=== PATIENT | male | born 1965 | race African-American/Black ===

== ENCOUNTER 2017-02-11 11:48 | Emergency (ER) | payer MEDICAID, OTHER ==
[~2017-02-11] VITALS: Ht 175.3 cm; Wt 73.0 kg
[~2017-02-11 11:48] MED LIST: ALBU05 IH; FLUO20CA33 PO; HYDR25TA PO; NAPR-1176 PO; PHEN100C4 PO; ZIPR20CA2 PO
[2017-02-11 11:55] VITALS: BP 177/121
== END 2017-02-11 15:47 | disposition left against medical advice (07) ==
LOC: ER 15:39
DX: Z76.0 Encounter for issue of repeat prescription (principal); Z53.21 Procedure and treatment not carried out due to patient leaving prior to being seen by health care provider

== ENCOUNTER 2017-12-13 03:37 | Emergency (ER) | payer OTHER ==
[~2017-12-13] VITALS: Ht 175.3 cm; Wt 78.0 kg
[2017-12-13 05:02] LABS: CHLORIDE 104 mEq/L (98-107)
[2017-12-13 05:07] LABS: ETHANOL BLOOD < 10 mg/dL
[2017-12-13 05:12] LABS: BASOPHILS % 1.1 % (0.0-2.0); HEMATOCRIT. 35.1 % (42.0-52.0); HEMOGLOBIN. 11.8 g/dL (14.0-18.0); LYMPHOCYTES % 32.4 % (20.0-50.0); MEAN CORPUSCULAR HEMOGLOBIN 28.8 pg (28.0-32.0); MEAN CORPUSCULAR VOLUME 85.8 fL (80.0-94.0); MEAN PLATELET VOLUME 7.6 fl (7.4-10.4); MONOCYTES % 11.1 % (2.0-8.0); NEUTROPHILS % 51.4 % (40.0-76.0); PLATELET 356 x1000/uL (130-400); RED BLOOD CELL COUNT 4.09 mill/uL (4.7-6.1); RED CELL DISTRIBUTION WIDTH 14.3 % (11.6-14.6)
[2017-12-13 07:08] LABS: CLARITY URINE CLEAR (CLEAR); COLOR URINE YELLOW (YELLOW); KETONES URINE NEGATIVE (NEGATIVE); LEUKOCYTE ESTERASE URINE NEGATIVE (NEGATIVE); NITRITE URINE NEGATIVE (NEGATIVE); OCCULT BLOOD URINE NEGATIVE (NEGATIVE); PROTEIN URINE NEGATIVE (NEGATIVE); SPECIFIC GRAVITY URINE 1.008 (1.005-1.030); UROBILINOGEN URINE 0.2 E.U./dL (0.2-1.0)
[2017-12-13 07:55] LABS: *AMPHETAMINES SCREEN URINE NEGATIVE (NEGATIVE); *BARBITURATES SCREEN URINE NEGATIVE (NEGATIVE); *BENZODIAZEPINES SCREEN URINE NEGATIVE (NEGATIVE); *COCAINE SCREEN URINE NEGATIVE (NEGATIVE); METHADONE URINE SCREEN NEGATIVE (NEGATIVE); OPIATES URINE SCREEN NEGATIVE (NEGATIVE)
[2017-12-13 07:56] LABS: CANNABINOID URINE SCREEN NEGATIVE (NEGATIVE); PHENCYCLIDINE URINE SCREEN NEGATIVE (NEGATIVE)
[2017-12-13 11:43] VITALS: BP 159/84
== END 2017-12-13 11:43 | disposition home or self-care (01) ==
LOC: ER 03:37
DX: F15.10 Other stimulant abuse, uncomplicated (principal); I10 Essential (primary) hypertension; J45.909 Unspecified asthma, uncomplicated; F20.9 Schizophrenia, unspecified; F43.10 Post-traumatic stress disorder, unspecified; R56.9 Unspecified convulsions; F31.9 Bipolar disorder, unspecified; Z59.0 Homelessness
CPT/HCPCS: 36415; 80053; 80305; 80307; 80329; 81003; 85025; 99284; G0482

== ENCOUNTER 2017-12-13 12:59 | Emergency (ER) | payer OTHER ==
[~2017-12-13] VITALS: Ht 175.3 cm; Wt 80.0 kg
[2017-12-13 13:02] VITALS: BP 165/92
== END 2017-12-13 15:00 | disposition home or self-care (01) ==
LOC: ER 14:56
DX: F43.10 Post-traumatic stress disorder, unspecified (principal); J45.909 Unspecified asthma, uncomplicated; I10 Essential (primary) hypertension; R56.9 Unspecified convulsions; Z76.0 Encounter for issue of repeat prescription
CPT/HCPCS: 99284

== ENCOUNTER 2018-12-18 18:46 | Emergency (ER) | payer MEDICAID, OTHER ==
[~2018-12-18] VITALS: Ht 172.7 cm; Wt 75.0 kg
[2018-12-18] MEDS ORDERED: HALOPERIDOL LACTATE 5MG/ML VIAL IM STA (20:14)
[2018-12-18] MEDS ORDERED: LORAZEPAM 2MG/ML CPJ IM STA (20:14)
[2018-12-18] MEDS ORDERED: DIPHENHYDRAMINE 50MG/ML VIAL IM STA (20:14)
[2018-12-18 21:42] LABS: HEMATOCRIT. 39.1 % (42.0-52.0); HEMOGLOBIN. 13.2 g/dL (14.0-18.0); MEAN CORPUSCULAR HEMOGLOBIN 29.1 pg (28.0-32.0); MEAN CORPUSCULAR VOLUME 86.2 fL (80.0-94.0); MEAN PLATELET VOLUME 7.9 fl (7.4-10.4); PLATELET 301 x1000/uL (130-400); RED BLOOD CELL COUNT 4.54 mill/uL (4.7-6.1); RED CELL DISTRIBUTION WIDTH 14.6 % (11.6-14.6)
[2018-12-18 21:45] LABS: CHLORIDE 114 mEq/L (98-107)
[2018-12-18 21:49] LABS: ETHANOL BLOOD < 10 mg/dL
[2018-12-18 22:09] LABS: PLATELET ESTIMATE NORMAL
[2018-12-18 22:39] LABS: CLARITY URINE CLOUDY (CLEAR); COLOR URINE DARK YELLOW (YELLOW); KETONES URINE 1+ (NEGATIVE); LEUKOCYTE ESTERASE URINE TRACE (NEGATIVE); NITRITE URINE NEGATIVE (NEGATIVE); OCCULT BLOOD URINE 3+ (NEGATIVE); PH URINE 5.5 (4.5-8.0); PROTEIN URINE 2+ (NEGATIVE); SPECIFIC GRAVITY URINE 1.025 (1.005-1.030)
[2018-12-18 22:54] LABS: *AMPHETAMINES SCREEN URINE PRESUMTIVE POSITIVE (NEGATIVE); *BARBITURATES SCREEN URINE NEGATIVE (NEGATIVE); *BENZODIAZEPINES SCREEN URINE PRESUMTIVE POSITIVE (NEGATIVE); *COCAINE SCREEN URINE NEGATIVE (NEGATIVE); METHADONE URINE SCREEN NEGATIVE (NEGATIVE); OPIATES URINE SCREEN NEGATIVE (NEGATIVE)
[2018-12-18 22:55] LABS: CANNABINOID URINE SCREEN PRESUMTIVE POSITIVE (NEGATIVE); PHENCYCLIDINE URINE SCREEN NEGATIVE (NEGATIVE)
[2018-12-19 12:21] VITALS: BP 124/89
== END 2018-12-19 12:24 | disposition home or self-care (01) ==
LOC: ER 18:46
DX: F19.10 Other psychoactive substance abuse, uncomplicated (principal); R45.1 Restlessness and agitation; F15.10 Other stimulant abuse, uncomplicated; J45.909 Unspecified asthma, uncomplicated; I10 Essential (primary) hypertension; Z79.899 Other long term (current) drug therapy
CPT/HCPCS: 36415; 80053; 80305; 80307; 80320; 80329; 81003; 85025; 96372; 99283; J1200; J1630; J2060; Z7610; G0480

== ENCOUNTER 2019-03-12 10:17 | Emergency (ER) | payer MEDICAID, OTHER ==
[~2019-03-12] VITALS: Ht 177.8 cm; Wt 72.0 kg
[2019-03-12] MEDS ORDERED: SODIUM CHLORIDE 0.9% 1,000 ML IV ONE (10:51)
[2019-03-12 11:18] LABS: BASOPHILS % 0.6 % (0.0-2.0); EOSINOPHILS % 0.6 % (0.0-5.0); HEMATOCRIT. 38.3 % (42.0-52.0); HEMOGLOBIN. 13.2 g/dL (14.0-18.0); LYMPHOCYTES % 14.7 % (20.0-50.0); MEAN CORPUSCULAR HEMOGLOBIN 30.3 pg (28.0-32.0); MEAN CORPUSCULAR VOLUME 87.9 fL (80.0-94.0); MEAN PLATELET VOLUME 8.1 fl (7.4-10.4); MONOCYTES % 11.5 % (2.0-8.0); NEUTROPHILS % 72.6 % (40.0-76.0); PLATELET 290 x1000/uL (130-400); RED BLOOD CELL COUNT 4.36 mill/uL (4.7-6.1); RED CELL DISTRIBUTION WIDTH 14.2 % (11.6-14.6)
[2019-03-12 11:19] LABS: CLARITY URINE CLEAR (CLEAR); COLOR URINE YELLOW (YELLOW); KETONES URINE 1+ (NEGATIVE); LEUKOCYTE ESTERASE URINE NEGATIVE (NEGATIVE); NITRITE URINE NEGATIVE (NEGATIVE); OCCULT BLOOD URINE 1+ (NEGATIVE); PH URINE 5.5 (4.5-8.0); PROTEIN URINE NEGATIVE (NEGATIVE); SPECIFIC GRAVITY URINE 1.032 (1.005-1.030)
[2019-03-12 11:21] LABS: CHLORIDE 105 mEq/L (98-107)
[2019-03-12 11:25] LABS: ETHANOL BLOOD < 10 mg/dL
[2019-03-12 11:48] LABS: *AMPHETAMINES SCREEN URINE PRESUMTIVE POSITIVE (NEGATIVE); *BARBITURATES SCREEN URINE NEGATIVE (NEGATIVE); *BENZODIAZEPINES SCREEN URINE PRESUMTIVE POSITIVE (NEGATIVE); *COCAINE SCREEN URINE NEGATIVE (NEGATIVE)
[2019-03-12 11:51] LABS: CANNABINOID URINE SCREEN NEGATIVE (NEGATIVE); METHADONE URINE SCREEN NEGATIVE (NEGATIVE); OPIATES URINE SCREEN NEGATIVE (NEGATIVE); PHENCYCLIDINE URINE SCREEN NEGATIVE (NEGATIVE)
[2019-03-12] MEDS ORDERED: LORAZEPAM 2MG/ML CPJ IV ONE (14:00)
[2019-03-12 21:30] VITALS: BP 141/92
== END 2019-03-12 21:51 | disposition home or self-care (01) ==
LOC: ER 10:17
DX: T43.621A Poisoning by amphetamines, accidental (unintentional), initial encounter (principal); R41.82 Altered mental status, unspecified; J45.909 Unspecified asthma, uncomplicated; I10 Essential (primary) hypertension; Y92.89 Other specified places as the place of occurrence of the external cause; Z79.899 Other long term (current) drug therapy
CPT/HCPCS: 36415; 80053; 80305; 80320; 81003; 85025; 96361; 96374; 99283; J2060; J7030; G0480

== ENCOUNTER 2019-03-12 23:00 | Emergency (ER) | payer OTHER ==
[~2019-03-12] VITALS: Ht 175.3 cm; Wt 73.0 kg
[2019-03-12 23:56] LABS: BASOPHILS % 0.8 % (0.0-2.0); EOSINOPHILS % 1.5 % (0.0-5.0); HEMATOCRIT. 39.9 % (42.0-52.0); HEMOGLOBIN. 13.6 g/dL (14.0-18.0); LYMPHOCYTES % 25.5 % (20.0-50.0); MEAN CORPUSCULAR HEMOGLOBIN 29.9 pg (28.0-32.0); MEAN PLATELET VOLUME 7.5 fl (7.4-10.4); MONOCYTES % 10.5 % (2.0-8.0); NEUTROPHILS % 61.7 % (40.0-76.0); PLATELET 276 x1000/uL (130-400); RED BLOOD CELL COUNT 4.53 mill/uL (4.7-6.1); RED CELL DISTRIBUTION WIDTH 14.1 % (11.6-14.6)
[2019-03-13 00:02] LABS: CHLORIDE 104 mEq/L (98-107)
[2019-03-13 00:07] LABS: ETHANOL BLOOD < 10 mg/dL
[2019-03-13 03:58] LABS: CLARITY URINE CLEAR (CLEAR); COLOR URINE YELLOW (YELLOW); KETONES URINE 1+ (NEGATIVE); LEUKOCYTE ESTERASE URINE NEGATIVE (NEGATIVE); NITRITE URINE NEGATIVE (NEGATIVE); OCCULT BLOOD URINE NEGATIVE (NEGATIVE); PROTEIN URINE NEGATIVE (NEGATIVE); SPECIFIC GRAVITY URINE 1.021 (1.005-1.030)
[2019-03-13 04:48] LABS: *AMPHETAMINES SCREEN URINE PRESUMTIVE POSITIVE (NEGATIVE); *BARBITURATES SCREEN URINE NEGATIVE (NEGATIVE); *BENZODIAZEPINES SCREEN URINE PRESUMTIVE POSITIVE (NEGATIVE); *COCAINE SCREEN URINE NEGATIVE (NEGATIVE); CANNABINOID URINE SCREEN NEGATIVE (NEGATIVE); METHADONE URINE SCREEN NEGATIVE (NEGATIVE); OPIATES URINE SCREEN NEGATIVE (NEGATIVE); PHENCYCLIDINE URINE SCREEN NEGATIVE (NEGATIVE)
[2019-03-13] MEDS ORDERED: ACETAMINOPHEN 325MG TABLET PO ONE (08:45)
[2019-03-13 10:07] VITALS: BP 146/88
== END 2019-03-13 10:10 | disposition home or self-care (01) ==
LOC: ER 23:47
DX: R45.851 Suicidal ideations (principal); J45.909 Unspecified asthma, uncomplicated; I10 Essential (primary) hypertension
CPT/HCPCS: 36415; 80305; 80307; 80320; 80329; 93005; 99284; G0480